=== PATIENT | male | born 1940 | race Two or more races ===

== ENCOUNTER 2017-09-10 14:50 | Inpatient (IN) | payer BC, MEDICARE ==
[2017-09-10] VITALS (16 sets, daily range): BP systolic 161–225; BP diastolic 65–120
[~2017-09-10] VITALS: Ht 175.3 cm; Wt 91.6 kg
[2017-09-10] MEDS ORDERED: DOXAZOSIN MESYLA4 MG ORAL (15:06)
[2017-09-10] MEDS ORDERED: ASPIR 8181 MG ORAL (15:06)
[2017-09-10] MEDS ORDERED: VITAMIN D400 INTLU ORAL (15:06)
[2017-09-10] MEDS ORDERED: ALLOPURINOL100 M1 ORAL (15:06)
[2017-09-10] MEDS ORDERED: HYDRALAZINE HC100 MG ORAL (15:06)
[2017-09-10] MEDS ORDERED: POTASSIUM CHLO20 ME2 ORAL (15:06)
[2017-09-10] MEDS ORDERED: CALCITRIOL0.25 MCG PO (15:06)
[2017-09-10] MEDS ORDERED: METOPROLOL TART50 M1 ORAL (15:21)
[2017-09-10] MEDS ORDERED: GLIPIZIDE5 MG ORAL (15:21)
[2017-09-10] MEDS ORDERED: FUROSEMIDE40 MG ORAL (15:21)
[2017-09-10] MEDS ORDERED: LORazepam 1mg tab ORAL ONE (15:30)
[2017-09-10] MEDS ORDERED: Acetaminophen 500mg (ES) tab ORAL ONE (15:30)
--- NOTE | 2017-09-10 15:39 | Emergency Room Report ---
History of Present Illness General Chief Complaint: Hypertension Source: Patient Present Illness HPI 71 sexual male with history of hypertension and gout, and reported noncompliance of his home antihypertensive regimen, sent in by Dr. Roy for admission for control of his blood pressure, his pressures are 220s over 110 's, and his only complaint is a mild frontal headache. He denies numbness, tingling, weakness, vision complaints, chest pain, syncope, any other problems at all. He reports he does not take his medications regularly and he generally doesn't like the way they make him feel and that is the reason for his noncompliance. Allergies: Coded Allergies: No Known Allergies (Verified Allergy, Mild, 08/30/06) Patient History Past Medical History: see triage record Reviewed Nursing Documentation: PMH: Agreed; PSxH: Agreed Nursing Documentation-PMH Past Medical History: No History, Except For Hx Hypertension: Yes Review of Systems All Other Systems: negative except mentioned in HPI Physical Exam Vital Signs Date Time Temp Pulse Resp B/P (MAP) Pulse Ox O2 Delivery O2 Flow Rate FiO2 09/10/17 15:01 98.2 69 18 243/120 96 Room Air 98.2 Sp02 EP Interpretation: reviewed, normal General Appearance: normal inspection, no apparent distress, alert, non-toxic Head: normocephalic Eyes: bilateral eye normal inspection, bilateral eye PERRL, bilateral eye EOMI ENT: normal ENT inspection, hearing grossly normal, normal pharynx, no angioedema, normal voice, moist mucus membranes Neck: normal inspection, full range of motion, supple, supple/symm/no masses Respiratory: chest non-tender, lungs clear, normal breath sounds, chest symmetrical, palpation of chest normal Cardiovascular #1: normal peripheral pulses, regular rate, rhythm, no gallop, no JVD, no murmur, no rub, edema - 2+ B/L LE pitting edema to level of knees Cardiovascular #2: 2+ radial (R), 2+ radial (L) Gastrointestinal: normal inspection, non tender, soft, no mass, no guarding, no rebound Rectal: deferred Genitourinary: normal inspection, no CVA tenderness Musculoskeletal: back normal, gait/station normal, normal range of motion, non- tender, no calf tenderness, Gypsy's Sign negative Neurologic: normal inspection, alert, responsive, hoop coiler III-XII nml as tested, motor strength/tone normal, sensory intact, cerebellar normal, speech normal Psychiatric: normal inspection, judgement/insight normal, memory normal, mood/ affect normal Skin: normal color, no rash, warm/dry, normal turgor Lymphatic: no adenopathy Medical Decision Making ER Course Patient given 1 mg Ativan, Tylenol, and 1 dose of his home hydralazine and metoprolol doses. He has long-standing poorly controlled hypertension, I do not wish to rapidly lower his blood pressure. I do believe this is a good start to gradual reduction in his pressures, and I do not think he needs any further workup other than basic labs, chest x-ray, he only has a low-grade headache, I do not suspect any intracranial catastrophe such as bleeds or large strokes that require neuroimaging at this time. Diagnosis hypertensive crisis. EKG Diagnostic Results EKG Time: 15:25 EP Interpretation: LVH criteria, TWI's diffusely, no ST elevations Rate: normal Rhythm: NSR ST Segments: no acute changes ASA given to the pt in ED: Yes Rhythm Strip Diag. Results Rhythm Strip Time: 15:38 EP Interpretation: yes Rate: 69 Rhythm: NSR, no PVC's, no ectopy Chest X-Ray Diagnostic Results Chest X-Ray Diagnostic Results : Chest X-Ray Ordered: Yes # of Views/Limited/Complete: 1 View Indication: Other - htn EP Interpretation: Yes Interpretation: no consolidation, no effusion, no pneumothorax, other - cardiomegaly Impression: No acute disease Electronically Signed by: Roberto Govea MD Last Vital Signs Date Time Temp Pulse Resp B/P (MAP) Pulse Ox O2 Delivery O2 Flow Rate FiO2 09/10/17 15:27 98.2 09/10/17 15:01 69 18 243/120 96 Room Air Disposition: ADMITTED INPATIENT Admit Decision Time: 15:39 Condition: Stable Signed Out To: Dr. Srivastava sent for direct admission but patient came through the ER. ROBERTO GOVEA M.D Sep 10, 2017 15:39
[2017-09-10] MEDS ORDERED: HydrALAZINE 50mg tab ORAL ONE (15:45)
[2017-09-10] MEDS ORDERED: Metoprolol Tartrate 50mg tab ORAL ONE (15:45)
[2017-09-10 16:03] LABS: BASOPHILS % (AUTO) 1.8 % (0.0-2.0); EOSINOPHILS % (AUTO) 5.4 % (0.0-3.0); HEMOGLOBIN 11.9 G/DL (14.2-18.0); MEAN CORPUSCULAR VOLUME 88 FL (80-99); NEUTROPHILS % (AUTO) 60.8 % (45.0-75.0); PLATELET COUNT 262 K/UL (150-450); RED BLOOD COUNT 4.22 M/UL (4.70-6.10); RED CELL DISTRIBUTION WIDTH 11.8 % (11.6-14.8); WHITE BLOOD COUNT 7.1 K/UL (4.8-10.8)
[2017-09-10 16:16] LABS: ANION GAP 10 mmol/L (5-15); BLOOD UREA NITROGEN 41 mg/dL (7-18); CALCIUM 9.7 MG/DL (8.5-10.1); CARBON DIOXIDE 28 MMOL/L (21-32); CHLORIDE 105 MMOL/L (98-107); CREATININE 5.2 MG/DL (0.55-1.30); POTASSIUM 3.4 MMOL/L (3.5-5.1); SODIUM 143 MMOL/L (136-145)
[2017-09-10 16:21] LABS: ALANINE AMINOTRANSFERASE 19 U/L (12-78); ALBUMIN 3.1 G/DL (3.4-5.0); ALBUMIN/GLOBULIN RATIO 0.7 (1.0-2.7); ALKALINE PHOSPHATASE 96 U/L (46-116); ASPARTATE AMINO TRANSFERASE 21 U/L (15-37); BILIRUBIN,TOTAL 0.4 MG/DL (0.2-1.0)
--- NOTE | 2017-09-10 16:26 | Diagnostic Imaging Report ---
Indication: Dyspnea Comparison: 08/30/2006 A single view chest radiograph was obtained. Findings: Cardiomediastinal appearance is within normal limits for age. Pulmonary vascularity is appropriate. The diaphragmatic contour is smooth and costophrenic angles are sharp. No pleural effusions are identified. The bones are unremarkable. Impression: No acute findings
[2017-09-10] MEDS ORDERED: niCARdipine HCl 200 ML IV SCH (16:45)
[2017-09-10] MEDS: 1/2NS w/KCl 20mEq 1000ml 1,000 ML IV SCH (21:15)
[2017-09-10] MEDS: Metoprolol Tartrate 50mg tab ORAL SCH (21:18)
[2017-09-11] VITALS (37 sets, daily range): BP systolic 128–197; BP diastolic 59–94
[2017-09-11] MEDS: HydrALAZINE 50mg tab ORAL SCH ×4 (00:28→17:32)
[2017-09-11] MEDS: niCARdipine HCl 200 ML IV SCH ×2 (00:29→06:06)
--- NOTE | 2017-09-11 00:45 | Consultation ---
DATE OF CONSULTATION: 09/10/2017 CARDIOLOGY CONSULTATION CONSULTING PHYSICIAN: Wilman Srivastava M.D. REQUESTING PHYSICIAN: Trung Rm M.D. REASON FOR CONSULT: Hypertensive emergency. HISTORY OF PRESENT ILLNESS: This 77-year-old male has a longstanding history of hypertensive heart disease and hypertensive nephrosclerosis in addition to being a non-insulin requiring diabetic. The patient has been stable for many years, although over the past year his renal function has worsened. Of concern was an elevated blood pressure reading noted about a week ago and repeat evaluation in my office revealed persistent elevated blood pressure over 200 systolic. The patient had all his medications in hand, but what was concerning was some confusion on his part and difficulty confirming whether he took his medications are not. This was quite an unusual state for this particular patient. The patient himself was concerned about his condition and could not explain why he was not functioning like usual, as such hospitalization was initiated. PAST MEDICAL HISTORY: Hypertensive heart disease, hypertensive nephrosclerosis, [id number] diabetes mellitus, diabetic nephropathy, chronic kidney disease stage 4, hyperuricemia, history of colon cancer status post hemicolectomy, vitamin D deficiency, and hyperlipidemia. MEDICATIONS: Prescribed medications prior to admission are reviewed and reconciled. ALLERGIES: None. FAMILY HISTORY: Notable for diabetes and hypertension in his mother. SOCIAL HISTORY: Negative for smoking, alcohol, or substance abuse. REVIEW OF SYSTEMS: Outpatient echocardiogram has revealed normal ejection fraction, concentric hypertrophy, and a diastolic relaxation abnormality with no history of flow-limiting coronary artery disease. He is up-to-date with his colonoscopy evaluations. His diabetes has been managed with oral therapy. As noted, his renal function has deteriorated of late and he has been followed as an outpatient by Dr. Burch. His creatinine has advanced to the range of 2.5. There is no history of asthma or blood clots in the legs. PHYSICAL EXAMINATION: GENERAL: Awake, alert in no distress. VITAL SIGNS: Blood pressure 243/120, heart rate 79, respiratory rate 18, and afebrile. HEENT: Normocephalic and atraumatic. Conjunctivae pink. Fundi benign. Oropharynx clear. NECK: Supple. Jugular venous pressure normal. Carotid upstrokes without delay. LUNGS: Clear. CARDIAC: Regular rhythm and rate. Normal S1 and S2 with a fourth heart sound. ABDOMEN: Soft and nontender with no bruits. EXTREMITIES: Good pulses. Trace dependent edema. NEUROLOGIC: Reveals some slow response time, but sensorium generally clear and motor exam unremarkable. LABORATORY AND DIAGNOSTIC DATA: EKG with sinus rhythm. No acute abnormalities. Chest x-ray no acute process. By report a CAT scan of the brain had no acute process noted either. IMPRESSION: 1. Hypertensive emergency. 2. Hypertensive heart disease. 3. Chronic kidney disease. 4. Type 2 diabetes mellitus. 5. History of colon cancer, in remission. PLAN: 1. ICU unit care. 2. IV medications with slow titration of blood pressure. 3. Resume baseline cardiovascular regimen and titrate cautiously. 4. Renal consultation is pending per Dr. Rm. 5. Further recommendations will follow. 6. We will avoid precipitous drop in blood pressure parameters in this setting. Wilman Srivastava M.D. DR: DELON JOB#: [id number] CC:
[2017-09-11 06:01] LABS: EOSINOPHILS % (AUTO) 5.7 % (0.0-3.0); HEMATOCRIT 31.1 % (42.0-52.0); HEMOGLOBIN 10.4 G/DL (14.2-18.0); LYMPHOCYTES % (AUTO) 17.4 % (20.0-45.0); MEAN CORPUSCULAR VOLUME 88 FL (80-99); MONOCYTES % (AUTO) 7.8 % (1.0-10.0); NEUTROPHILS % (AUTO) 68.1 % (45.0-75.0); PLATELET COUNT 223 K/UL (150-450); RED BLOOD COUNT 3.55 M/UL (4.70-6.10); RED CELL DISTRIBUTION WIDTH 11.6 % (11.6-14.8); WHITE BLOOD COUNT 6.9 K/UL (4.8-10.8)
[2017-09-11] MEDS: GlipiZIDE 5mg tab ORAL SCH ×2 (06:06→17:32)
[2017-09-11 06:28] LABS: ALANINE AMINOTRANSFERASE 17 U/L (12-78); ALBUMIN 2.3 G/DL (3.4-5.0); ALBUMIN/GLOBULIN RATIO 0.6 (1.0-2.7); ALKALINE PHOSPHATASE 80 U/L (46-116); ANION GAP 9 mmol/L (5-15); ASPARTATE AMINO TRANSFERASE 16 U/L (15-37); BILIRUBIN,TOTAL 0.2 MG/DL (0.2-1.0); BLOOD UREA NITROGEN 39 mg/dL (7-18); CALCIUM 8.8 MG/DL (8.5-10.1); CARBON DIOXIDE 27 MMOL/L (21-32); CHLORIDE 106 MMOL/L (98-107); CREATININE 4.8 MG/DL (0.55-1.30); POTASSIUM 3.2 MMOL/L (3.5-5.1); SODIUM 142 MMOL/L (136-145)
[2017-09-11 07:16] LABS: APPEARANCE,URINE CLEAR; BILIRUBIN, URINE NEGATIVE (NEGATIVE); COLOR,URINE PALE YELLOW; GLUCOSE, URINE (UA) 2+ (NEGATIVE); KETONES,URINE NEGATIVE (NEGATIVE); LEUKOCYTE ESTERASE ,URINE NEGATIVE (NEGATIVE); NITRITE,URINE NEGATIVE (NEGATIVE); PH,URINE 6.5 (4.5-8.0); PROTEIN,URINE 4+ (NEGATIVE); UROBILINOGEN,URINE NORMAL MG/DL (0.0-1.0)
[2017-09-11] MEDS: Aspirin EC 81mg tab ORAL SCH (08:30)
[2017-09-11] MEDS: Calcitriol 0.25mcg Cap ORAL SCH (08:30)
[2017-09-11] MEDS: Metoprolol Tartrate 50mg tab ORAL SCH ×2 (08:30→21:18)
[2017-09-11] MEDS: Allopurinol 100mg Tab ORAL SCH (08:31)
[2017-09-11] MEDS: 1/2NS w/KCl 20mEq 1000ml 1,000 ML IV SCH ×2 (08:33→17:33)
[2017-09-11] MEDS: Heparin 5000 units/ml inj SUBQ SCH ×2 (08:54→21:20)
[2017-09-11] MEDS ORDERED: Doxazosin 4mg tab ORAL SCH (09:00)
[2017-09-11] MEDS ORDERED: Aspirin EC 81mg tab ORAL SCH (09:00)
--- NOTE | 2017-09-11 10:17 | Diagnostic Imaging Report ---
Indication: Headache Technique: Contiguous 5 mm thick transaxial imaging of the head obtained in a Siemens Sensation [address] scanner. Soft tissue and bone windows generated. Automatic Exposure Control was utilized. Total Dose length Product (DLP): 1393.[address] Dose Index Volume (CTDIvol): 70.38 mGy Comparison: none Findings: There is mild prominence of the ventricles, basal cisterns, and cerebral sulci consistent with atrophy. Moderate, patchy, nonspecific, white matter hypoattenuation is noted throughout the brain consistent with chronic small vessel disease. There is no midline shift, edema, acute hemorrhage, mass effect, or abnormal extra-axial fluid collections. Bones and extra osseous soft tissues are unremarkable. Impression: No acute intracranial bleed, mass effect or edema. Moderate atrophy of the brain. Evidence of chronic small vessel disease involving white matter tracts. The CT scanner at [facility] is accredited by the [employer] and the scans are performed using dose optimization techniques as appropriate to a performed exam including Automatic Exposure control.
--- NOTE | 2017-09-11 10:44 | History and Physical Report ---
DATE OF ADMISSION: 09/10/2017 CHIEF COMPLAINT: Hypertensive emergency. HISTORY OF PRESENT ILLNESS: The patient is a pleasant 77-year-old male. 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 He had systolics in the 190s to 200 range. He seems more confused, confusion, and markedly elevated blood pressure. He is now admitted for further evaluation and care. Currently, he is on a nicardipine drip. Blood pressure is down in the 160 range. He denies any headaches. No fevers. No chills. PAST MEDICAL HISTORY: As above. He has history of hyperuricemia, history of colon cancer, status post hemicolectomy, vitamin D deficiency, and hyperlipidemia. CURRENT MEDICATIONS: Reconciled and reviewed. ALLERGIES: None. FAMILY HISTORY: Significant for diabetes and hypertension. SOCIAL HISTORY: Negative for tobacco, ethanol, or drugs. REVIEW OF SYSTEMS: GENERAL: No fevers or chills. HEENT: No headaches or visual changes. CARDIOPULMONARY: No chest pain or shortness of breath. GASTROINTESTINAL: No nausea or vomiting. GENITOURINARY: No urgency or frequency. MUSCULOSKELETAL: No joint pain or swelling. NEUROLOGIC: No evidence of seizures. PHYSICAL EXAMINATION: VITAL SIGNS: Current temperature is 98.3, pulse 57, respirations 16, and blood pressure 140/61. GENERAL: The patient is well developed, no apparent distress. HEART: Regular rate and rhythm. LUNGS: Clear. ABDOMEN: Soft, nontender, and nondistended. EXTREMITIES: Without clubbing, cyanosis, or edema. LABORATORY DATA: White count was 7, hemoglobin 11, hematocrit 37, and platelets of 262. Sodium 143, potassium 3.4, chloride 105, bicarb 28, BUN 41, creatinine 5.2. Urine was clear. ASSESSMENT: This is a pleasant male with history of hypertension, chronic kidney disease, diabetes, admitted with hypertensive emergency. 1. Hypertensive emergency. 2. History of chronic kidney disease. 3. Acute on chronic renal failure. 4. Diabetes. 5. Prior history of colon cancer. PLAN: Admit to ICU. Renal and Cardiology consultations. Continue nicardipine drip and titrate as needed. Consider gentle hydration. Check renal ultrasound if renal function does not improve. Continue outpatient diabetic regimen. Monitor blood sugars. Replace electrolytes as needed. Trung Rm M.D. DR: TIFFANY JOB#: [id number] CC:
--- NOTE | 2017-09-11 17:15 | Consultation ---
DATE OF CONSULTATION: 09/11/2017 NEPHROLOGY CONSULTATION CONSULTING PHYSICIAN: Dave Burch M.D. REFERRING PHYSICIAN: Trung mR M.D. REASON FOR CONSULTATION: Elevated BUN and creatinine. Change in status. HISTORY OF PRESENT ILLNESS: The patient is well known to me. He is a 77-year-old male with, hypertension, diabetes, and chronic kidney disease with a baseline creatinine about 2.5. He presents now with rising BUN and creatinine, weakness, and apparently some confusion on arrival. SURGERIES: Colon resection for colon cancer many years ago. MEDICATIONS: Vitamin D3 5000 units daily, amlodipine 10 mg daily, benazepril 40 mg daily, Lasix 40 Sunday, Sunday, and Sunday, doxazosin 8 mg b.i.d., glipizide 5 mg b.i.d., metoprolol 50 mg b.i.d., calcitriol 0.5 mcg daily, allopurinol 150 mg daily, aspirin 81 mg daily, hydralazine 100 mg b.i.d., and potassium 20 mEq Sunday, Sunday, and Sunday. ALLERGIES: None known. HABITS: He is a nondrinker and nonsmoker. No use of illicit drugs. SYSTEM REVIEW: HEENT: Vision and hearing is good. ENDOCRINE: History of diabetes controlled on oral agents and likely diabetic nephropathy. No known thyroid disease. PULMONARY: No asthma, TB, or chronic cough. CARDIAC: No definite angina or chest pain. GASTROINTESTINAL: He said he has had nausea and vomiting, unable to hold down food lately. GENITOURINARY: No dysuria, hematuria, or kidney stones. PHYSICAL EXAMINATION: GENERAL: The patient is alert man, seen in the intensive care unit. VITAL SIGNS: Temperature 98.1, pulse 75, respirations 18, and blood pressure 155/78. HEENT: Sclerae are nonicteric. Ocular motions intact in all directions. Oral mucosa slightly dry. NECK: No adenopathy. LUNGS: Clear. HEART: Regular rhythm. No murmur. ABDOMEN: Soft without organomegaly or masses. EXTREMITIES: No edema, cyanosis or clubbing. NEUROLOGIC: He is alert and oriented. Cranial nerves are intact. PERTINENT LABORATORY AND DIAGNOSTIC DATA: On admission, BUN 41 and creatinine 5.2 and repeat 39 and 4.8. Sodium 142, potassium 3.2, chloride 106, and CO2 27. Chest x-ray shows no active disease. Troponin 0.031. Albumin 2.3. The urinalysis shows 0 red cells, 0 to 2 white cells, 4+ proteinuria, and 2+ glucose. IMPRESSION: 1. Diabetic nephropathy. 2. Dehydration. 3. Nausea and vomiting, etiology unclear, possibly from uremia. 4. Hypertensive heart disease and kidney disease. 5. Adult onset diabetes. PLAN: We will continue the patient with hydration and monitor his renal function. Hopefully, he will come back to baseline. The glucose will be monitored as well as his cardiovascular and neurologic status. Dave Burch M.D. DR: DARCY JOB#: [id number] CC:
[2017-09-11] MEDS: Doxazosin 4mg tab ORAL SCH (17:32)
[2017-09-12] VITALS (24 sets, daily range): BP systolic 133–190; BP diastolic 59–90
--- NOTE | 2017-09-12 00:36 | Cardiology Report ---
APPROVED REPORT EKG Measurement Heart [id number] VT [id number] Normal sinus rhythm Voltage criteria for left ventricular hypertrophy Abnormal ECG
[2017-09-12] MEDS: cloNIDine 0.2mg Tab ORAL PRN ×2 (00:46→21:52)
--- NOTE | 2017-09-12 05:00 | Progress Note ---
DATE: 09/11/2017 CARDIOLOGY PROGRESS NOTE SUBJECTIVE: Condition remains critical. Prognosis guarded. The patient remains in the intensive care unit. Blood pressure parameters are significantly elevated. He is on IV and oral antihypertensives transitioning from former to latter. The patient is more clear today. He has no shortness of breath or chest pain. OBJECTIVE: VITAL SIGNS: Blood pressure up to 180 systolic, heart rate in the 80s, respiratory rate 20, he is afebrile. HEENT: Conjunctivae pink. Sclerae are anicteric. Oropharynx clear. Mucous membranes moist. NECK: Supple. No jugular venous distention. LUNGS: With few rales. CARDIAC: Regular rhythm and rate. Normal S1, S2 with a fourth heart sound. ABDOMEN: Soft, nontender. No bruits. EXTREMITIES: Without edema. NEUROLOGIC: Nonfocal. Sensorium is clear. LABORATORY DATA: White count 6.9, hemoglobin 10.4. Potassium 3.2, BUN 39, and creatinine 4.8. Pro-natriuretic peptide 3100. Albumin 2.3. IMPRESSION: 1. Hypertensive emergency, improving. 2. Acute on chronic diastolic congestive heart failure. 3. Severe protein-calorie malnutrition. 4. Acute on chronic renal failure. 5. Type 2 diabetes mellitus with hyperglycemia. 6. Hypokalemia. PLAN: 1. Continue titration of antihypertensives as described above. 2. Check magnesium. 3. Replace potassium. 4. Protein supplement. 5. Dlhgvy-avbk-kxoo urine collection. 6. Anti-platelet and anti-lipid therapy. 7. Continue ICU monitoring. Wilman Srivastava M.D. DR: Brandy JOB#: [id number] CC:
[2017-09-12] MEDS: 1/2NS w/KCl 20mEq 1000ml 1,000 ML IV SCH ×2 (06:21→18:30)
[2017-09-12] MEDS: GlipiZIDE 5mg tab ORAL SCH ×3 (06:21→16:30)
[2017-09-12] MEDS ORDERED: Haloperidol 5mg/ml Inj IM PRN (08:30)
--- NOTE | 2017-09-12 08:32 | General Progress Note ---
Assessment/Plan Problem List: (1) Toxic metabolic encephalopathy ICD Codes: G92 - Toxic encephalopathy SNOMED: 605586592 (2) Hypertensive urgency ICD Codes: I16.0 - Hypertensive urgency SNOMED: 440665601 Status: stable, not improved Assessment/Plan topical and iv bp rx anxiolytics follow up labs dvt/stress ulcer prophylaxis restraints for safety Subjective ROS Limited/Unobtainable: Yes Constitutional: Reports: malaise, weakness HEENT: Reports: no symptoms Cardiovascular: Reports: no symptoms Respiratory: Reports: no symptoms Gastrointestinal/Abdominal: Reports: no symptoms Genitourinary: Reports: no symptoms Neurologic/Psychiatric: Reports: anxiety, emotional problems Endocrine: Reports: no symptoms Hematologic/Lymphatic: Reports: no symptoms Allergies: Coded Allergies: No Known Allergies (Verified Allergy, Mild, 08/30/06) All Systems: reviewed and negative except above Subjective very agitated and confused this am. trying to get out of bed. refusing meds. moves all 4 ext. thinks he's at home. Objective Last 24 Hour Vital Signs Date Time Temp Pulse Resp B/P (MAP) Pulse Ox O2 Delivery O2 Flow Rate FiO2 09/12/17 07:00 58 14 159/71 99 Room Air 09/12/17 06:00 56 14 143/62 99 Room Air 09/12/17 05:00 59 13 149/67 99 Room Air 09/12/17 04:00 57 09/12/17 04:00 98.6 57 14 138/65 98 Room Air 98.6 09/12/17 03:00 58 14 133/59 98 Room Air 09/12/17 02:00 60 14 148/62 98 Room Air 09/12/17 01:00 68 14 156/68 98 Room Air 09/12/17 00:46 166/70 09/12/17 00:00 79 09/12/17 00:00 98.2 79 17 190/78 99 Room Air 98.2 09/11/17 23:00 82 16 171/72 100 Room Air 09/11/17 22:00 76 16 178/94 98 Room Air 09/11/17 21:18 76 165/74 09/11/17 21:00 76 16 171/85 98 Room Air 09/11/17 20:00 75 09/11/17 20:00 98.0 75 16 178/76 98 Room Air 98.0 09/11/17 19:00 72 18 156/76 98 Room Air 09/11/17 18:00 69 18 174/83 98 Room Air 09/11/17 17:32 177/93 09/11/17 17:00 75 18 167/93 98 Room Air 09/11/17 16:00 97.8 73 16 179/84 93 Room Air 97.8 09/11/17 16:00 65 09/11/17 15:00 68 18 165/75 98 Room Air 09/11/17 14:01 71 148/85 09/11/17 14:00 74 18 158/74 98 Room Air 09/11/17 13:00 71 18 148/85 95 Room Air 09/11/17 12:30 75 18 155/78 95 Room Air 09/11/17 12:30 78 18 155/78 95 Room Air 09/11/17 12:00 78 09/11/17 12:00 98.1 78 16 152/82 93 Room Air 98.1 09/11/17 11:33 128/83 09/11/17 11:30 76 16 128/83 95 Room Air 09/11/17 11:00 76 16 143/63 98 Room Air 09/11/17 10:30 72 16 150/70 98 Room Air 09/11/17 10:00 73 16 157/69 98 Room Air 09/11/17 09:30 67 16 149/70 98 Room Air 09/11/17 09:00 73 16 146/71 96 Room Air 09/11/17 08:30 76 151/68 09/11/17 08:30 78 16 151/62 98 Room Air Intake and Output 09/11/17 09/12/17 19:00 07:00 Intake Total 1910 ml 1045 ml Output Total 1120 ml 900 ml Balance 790 ml 145 ml Intake Oral 750 ml 220 ml IV Total 1160 ml 825 ml Output Urine Total 1120 ml 900 ml Height (Feet): 5 Height (Inches): 9.00 Weight (Pounds): 155 General Appearance: WD/WN, alert Neck: supple Cardiovascular: regular rhythm Respiratory/Chest: chest wall non-tender, lungs clear, normal breath sounds Abdomen: normal bowel sounds, non tender, soft, no organomegaly Edema: no edema noted Arm (L), no edema noted Arm (R), no edema noted Leg (L), no edema noted Leg (R), no edema noted Pedal (L), no edema noted Pedal (R), no edema noted Generalized Trung Rm MD Sep 12, 2017 08:32
[2017-09-12] MEDS: Allopurinol 100mg Tab ORAL SCH (09:00)
[2017-09-12] MEDS: Doxazosin 4mg tab ORAL SCH ×2 (09:00→17:26)
[2017-09-12] MEDS: Heparin 5000 units/ml inj SUBQ SCH ×2 (09:00→20:57)
[2017-09-12] MEDS: Aspirin EC 81mg tab ORAL SCH (09:00)
[2017-09-12] MEDS: Metoprolol Tartrate 50mg tab ORAL SCH ×2 (09:00→20:55)
[2017-09-12] MEDS: HydrALAZINE 50mg tab ORAL SCH ×3 (09:00→17:26)
[2017-09-12] MEDS: Calcitriol 0.25mcg Cap ORAL SCH (09:00)
[2017-09-12 09:05] LABS: BASOPHILS % (AUTO) 1.1 % (0.0-2.0); EOSINOPHILS % (AUTO) 4.1 % (0.0-3.0); HEMATOCRIT 34.9 % (42.0-52.0); HEMOGLOBIN 11.3 G/DL (14.2-18.0); LYMPHOCYTES % (AUTO) 37.7 % (20.0-45.0); MEAN CORPUSCULAR VOLUME 88 FL (80-99); MONOCYTES % (AUTO) 6.5 % (1.0-10.0); NEUTROPHILS % (AUTO) 50.7 % (45.0-75.0); PLATELET COUNT 240 K/UL (150-450); RED BLOOD COUNT 3.95 M/UL (4.70-6.10); RED CELL DISTRIBUTION WIDTH 11.7 % (11.6-14.8); WHITE BLOOD COUNT 8.2 K/UL (4.8-10.8)
[2017-09-12 09:33] LABS: ALANINE AMINOTRANSFERASE 19 U/L (12-78); ALBUMIN 2.6 G/DL (3.4-5.0); ALBUMIN/GLOBULIN RATIO 0.6 (1.0-2.7); ALKALINE PHOSPHATASE 85 U/L (46-116); ANION GAP 10 mmol/L (5-15); ASPARTATE AMINO TRANSFERASE 18 U/L (15-37); BILIRUBIN,TOTAL 0.3 MG/DL (0.2-1.0); BLOOD UREA NITROGEN 37 mg/dL (7-18); CALCIUM 8.8 MG/DL (8.5-10.1); CARBON DIOXIDE 25 MMOL/L (21-32); CHLORIDE 106 MMOL/L (98-107); CREATININE 4.6 MG/DL (0.55-1.30); POTASSIUM 4.1 MMOL/L (3.5-5.1); SODIUM 141 MMOL/L (136-145)
--- NOTE | 2017-09-12 11:05 | Nephrology Progress Note ---
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 (4) CKD (chronic kidney disease) stage 4, GFR 15-29 ml/min (5) Hypertensive urgency (6) Toxic metabolic encephalopathy Plan continue iv fluids, titrate bp meds Subjective Constitutional: Reports: weakness HEENT: Reports: no symptoms Genitourinary: Reports: no symptoms Objective Objective Last 24 Hour Vital Signs Date Time Temp Pulse Resp B/P (MAP) Pulse Ox O2 Delivery O2 Flow Rate FiO2 09/12/17 10:00 98.4 63 22 154/72 99 Room Air 98.4 09/12/17 09:35 162/70 09/12/17 09:00 162/70 09/12/17 09:00 77 24 162/70 98 Room Air 09/12/17 08:00 80 09/12/17 08:00 59 20 169/69 98 Room Air 09/12/17 07:00 58 14 159/71 99 Room Air 09/12/17 06:00 56 14 143/62 99 Room Air 09/12/17 05:00 59 13 149/67 99 Room Air 09/12/17 04:00 57 09/12/17 04:00 98.6 57 14 138/65 98 Room Air 98.6 09/12/17 03:00 58 14 133/59 98 Room Air 09/12/17 02:00 60 14 148/62 98 Room Air 09/12/17 01:00 68 14 156/68 98 Room Air 09/12/17 00:46 166/70 09/12/17 00:00 79 09/12/17 00:00 98.2 79 17 190/78 99 Room Air 98.2 09/11/17 23:00 82 16 171/72 100 Room Air 09/11/17 22:00 76 16 178/94 98 Room Air 09/11/17 21:18 76 165/74 09/11/17 21:00 76 16 171/85 98 Room Air 09/11/17 20:00 75 09/11/17 20:00 98.0 75 16 178/76 98 Room Air 98.0 09/11/17 19:00 72 18 156/76 98 Room Air 09/11/17 18:00 69 18 174/83 98 Room Air 09/11/17 17:32 177/93 09/11/17 17:00 75 18 167/93 98 Room Air 09/11/17 16:00 97.8 73 16 179/84 93 Room Air 97.8 09/11/17 16:00 65 09/11/17 15:00 68 18 165/75 98 Room Air 09/11/17 14:01 71 148/85 09/11/17 14:00 74 18 158/74 98 Room Air 09/11/17 13:00 71 18 148/85 95 Room Air 09/11/17 12:30 75 18 155/78 95 Room Air 09/11/17 12:30 78 18 155/78 95 Room Air 09/11/17 12:00 78 09/11/17 12:00 98.1 78 16 152/82 93 Room Air 98.1 09/11/17 11:33 128/83 09/11/17 11:30 76 16 128/83 95 Room Air Intake and Output 09/11/17 09/12/17 19:00 07:00 Intake Total 1910 ml 1120 ml Output Total 1120 ml 900 ml Balance 790 ml 220 ml Intake Oral 750 ml 220 ml IV Total 1160 ml 900 ml Output Urine Total 1120 ml 900 ml Laboratory Tests 09/12/17 08:18: White Blood Count 8.2, Red Blood Count 3.95L, Hemoglobin 11.3L, Hematocrit 34.9L , Mean Corpuscular Volume 88, Mean Corpuscular Hemoglobin 28.6, Mean Corpuscular Hemoglobin Concent 32.5, Red Cell Distribution Width 11.7, Platelet Count 240, Mean Platelet Volume 8.2, Neutrophils (%) (Auto) 50.7, Lymphocytes (% ) (Auto) 37.7, Monocytes (%) (Auto) 6.5, Eosinophils (%) (Auto) 4.1H, Basophils (%) (Auto) 1.1, Sodium Level 141, Potassium Level 4.1, Chloride Level 106, Carbon Dioxide Level 25, Anion Gap 10, Blood Urea Nitrogen 37H, Creatinine 4.6H , Estimat Glomerular Filtration Rate , Glucose Level 133H, Calcium Level 8.8, Magnesium Level 2.1, Total Bilirubin 0.3, Aspartate Amino Transf (AST/SGOT) 18, Alanine Aminotransferase (ALT/SGPT) 19, Alkaline Phosphatase 85, Ammonia 33H, Total Protein 6.8, Albumin 2.6L, Globulin 4.2, Albumin/Globulin Ratio 0.6L Height (Feet): 5 Height (Inches): 9.00 Weight (Pounds): 155 General Appearance: no apparent distress, alert EENT: normal ENT inspection Neck: normal alignment Cardiovascular: regular rhythm Respiratory/Chest: lungs clear Abdomen: non tender, soft Extremities: non-tender 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
[2017-09-12] MEDS ORDERED: Tubing IV Secondary IV ONE (16:39)
[2017-09-12] MEDS ORDERED: D5NS 1000ml IV ONE (16:39)
[2017-09-13] VITALS (24 sets, daily range): BP systolic 133–176; BP diastolic 46–87
--- NOTE | 2017-09-13 05:15 | Progress Note ---
DATE: 09/12/2017 CARDIOLOGY PROGRESS NOTE SUBJECTIVE: The patient remains in the intensive care unit. His blood pressure parameters have improved. He is off IV drip. He has not had any chest pain or shortness of breath. OBJECTIVE: GENERAL: Earlier, the patient was confused, combative, and refusing medications. VITAL SIGNS: Blood pressure 143/62, pulse 56, respiratory rate 14. NECK: Supple. Jugular venous pressure is slightly elevated. LUNGS: With few rales. CARDIAC: Regular rhythm and rate. Normal S1, S2 with a fourth heart sound. ABDOMEN: Soft, nontender. No bruits. EXTREMITIES: With 1+ dependent edema. IMPRESSION: 1. Hypertensive emergency. 2. Hypertensive encephalopathy. 3. Acute and chronic diastolic congestive heart failure. 4. Acute on chronic renal failure. 5. Type 2 diabetes mellitus. 6. History of colon cancer, in remission. PLAN: 1. Review laboratory studies. 2. Replace electrolytes as needed. 3. Titrate antihypertensives. 4. No resumption of IV drip. 5. Monitor cardiorenal parameters. 6. Sitter at bedside when transferred out of ICU if he continues to have current type of behavioral issues due to encephalopathy. Wilman Srivastava M.D. DR: Brandy JOB#: [id number] CC:
[2017-09-13 06:21] LABS: AMMONIA 18 umol/L (11-32)
[2017-09-13] MEDS: GlipiZIDE 5mg tab ORAL SCH ×2 (06:31→17:01)
[2017-09-13 06:55] LABS: ALANINE AMINOTRANSFERASE 15 U/L (12-78); ALBUMIN 2.1 G/DL (3.4-5.0); ALBUMIN/GLOBULIN RATIO 0.6 (1.0-2.7); ALKALINE PHOSPHATASE 65 U/L (46-116); ANION GAP 9 mmol/L (5-15); ASPARTATE AMINO TRANSFERASE 14 U/L (15-37); BILIRUBIN,TOTAL 0.2 MG/DL (0.2-1.0); BLOOD UREA NITROGEN 40 mg/dL (7-18); CALCIUM 8.6 MG/DL (8.5-10.1); CARBON DIOXIDE 24 MMOL/L (21-32); CHLORIDE 107 MMOL/L (98-107); CREATININE 4.4 MG/DL (0.55-1.30); POTASSIUM 4.1 MMOL/L (3.5-5.1); SODIUM 140 MMOL/L (136-145)
[2017-09-13] MEDS: 1/2NS w/KCl 20mEq 1000ml 1,000 ML IV SCH ×2 (08:30→21:01)
[2017-09-13] MEDS: Heparin 5000 units/ml inj SUBQ SCH ×2 (10:00→21:41)
[2017-09-13] MEDS: Calcitriol 0.25mcg Cap ORAL SCH (10:05)
[2017-09-13] MEDS: Aspirin EC 81mg tab ORAL SCH (10:06)
[2017-09-13] MEDS: Doxazosin 4mg tab ORAL SCH ×2 (10:06→17:31)
[2017-09-13] MEDS: Allopurinol 100mg Tab ORAL SCH (10:07)
[2017-09-13] MEDS: HydrALAZINE 50mg tab ORAL SCH ×3 (10:08→17:31)
[2017-09-13] MEDS: Metoprolol Tartrate 50mg tab ORAL SCH ×2 (10:10→21:39)
--- NOTE | 2017-09-13 15:03 | Nephrology Progress Note ---
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 (4) CKD (chronic kidney disease) stage 4, GFR 15-29 ml/min (5) Hypertensive urgency (6) Toxic metabolic encephalopathy Plan continue iv fluids, titrate bp meds, creatinine still above baseline Subjective Constitutional: Reports: no symptoms HEENT: Reports: no symptoms Genitourinary: Reports: no symptoms Neurologic/Psychiatric: Reports: no symptoms Objective Objective Last 24 Hour Vital Signs Date Time Temp Pulse Resp B/P (MAP) Pulse Ox O2 Delivery O2 Flow Rate FiO2 09/13/17 15:00 67 17 143/71 99 Room Air 09/13/17 14:53 149/70 09/13/17 14:00 67 16 149/70 99 Room Air 09/13/17 13:00 98.3 66 18 155/76 99 Room Air 98.3 09/13/17 12:00 65 17 137/62 97 Room Air 09/13/17 12:00 70 09/13/17 11:00 69 16 153/77 97 Room Air 09/13/17 10:10 69 137/72 09/13/17 10:09 69 137/72 09/13/17 10:08 137/72 09/13/17 10:00 72 16 137/72 97 Room Air 09/13/17 09:00 97.8 63 14 168/80 99 Room Air 97.8 09/13/17 08:00 64 09/13/17 08:00 62 14 156/74 97 Room Air 09/13/17 07:00 66 19 165/76 98 Room Air 09/13/17 06:00 65 12 133/61 97 Room Air 09/13/17 05:00 63 12 168/78 99 Room Air 09/13/17 04:00 67 09/13/17 04:00 97.9 67 25 156/77 98 Room Air 97.9 09/13/17 03:00 65 19 151/72 98 Room Air 09/13/17 02:00 64 16 143/71 98 Room Air 09/13/17 01:00 62 14 137/73 98 Room Air 09/13/17 00:00 63 09/13/17 00:00 98.6 65 16 136/67 99 Room Air 98.6 09/12/17 23:00 68 19 144/80 99 Room Air 09/12/17 22:00 87 16 168/72 98 Room Air 09/12/17 21:52 169/75 09/12/17 21:00 88 17 169/75 99 Room Air 09/12/17 20:55 85 178/80 09/12/17 20:00 80 09/12/17 20:00 80 15 178/80 99 Room Air 09/12/17 19:00 80 15 175/78 99 Room Air 09/12/17 18:00 72 20 173/80 99 Room Air 09/12/17 17:26 175/90 09/12/17 17:00 68 20 179/77 99 Room Air 09/12/17 16:00 98.7 78 19 177/73 98 Room Air 98.7 09/12/17 16:00 77 Intake and Output 09/12/17 09/13/17 19:00 07:00 Intake Total 1670 ml 1380 ml Output Total 950 ml 325 ml Balance 720 ml 1055 ml Intake Oral 670 ml 480 ml IV Total 1000 ml 900 ml Output Urine Total 950 ml 325 ml Laboratory Tests 09/13/17 04:42: Sodium Level 140, Potassium Level 4.1, Chloride Level 107, Carbon Dioxide Level 24, Anion Gap 9, Blood Urea Nitrogen 40H, Creatinine 4.4H, Estimat Glomerular Filtration Rate , Glucose Level 103, Calcium Level 8.6, Total Bilirubin 0.2, Aspartate Amino Transf (AST/SGOT) 14L, Alanine Aminotransferase (ALT/SGPT) 15, Alkaline Phosphatase 65, Ammonia 18, Total Protein 5.5L, Albumin 2.1L, Globulin 3.4, Albumin/Globulin Ratio 0.6L Height (Feet): 5 Height (Inches): 9.00 Weight (Pounds): 155 General Appearance: no apparent distress EENT: normal ENT inspection Neck: normal alignment Cardiovascular: normal rate, regular rhythm Respiratory/Chest: lungs clear, normal breath sounds Abdomen: non tender, soft, no organomegaly Extremities: no calf tenderness 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
--- NOTE | 2017-09-13 17:13 | General Progress Note ---
Assessment/Plan Problem List: (1) Toxic metabolic encephalopathy ICD Codes: G92 - Toxic encephalopathy SNOMED: 578576241 (2) Hypertensive urgency ICD Codes: I16.0 - Hypertensive urgency SNOMED: 339605219 Status: stable, progressing Assessment/Plan topical and iv bp rx anxiolytics as needed follow up labs dvt/stress ulcer prophylaxis restraints for safety Subjective ROS Limited/Unobtainable: No Constitutional: Reports: malaise, weakness HEENT: Reports: no symptoms Cardiovascular: Reports: no symptoms Respiratory: Reports: no symptoms Gastrointestinal/Abdominal: Reports: no symptoms Genitourinary: Reports: no symptoms Neurologic/Psychiatric: Reports: no symptoms Endocrine: Reports: no symptoms Hematologic/Lymphatic: Reports: no symptoms Allergies: Coded Allergies: No Known Allergies (Verified Allergy, Mild, 08/30/06) All Systems: reviewed and negative except above Subjective no events. remains confused but less agitated. no fevers or chills. Bp high but better controlled. Objective Last 24 Hour Vital Signs Date Time Temp Pulse Resp B/P (MAP) Pulse Ox O2 Delivery O2 Flow Rate FiO2 09/13/17 16:00 98.0 67 17 151/67 99 Room Air 98.0 09/13/17 15:00 67 17 143/71 99 Room Air 09/13/17 14:53 149/70 09/13/17 14:00 67 16 149/70 99 Room Air 09/13/17 13:00 98.3 66 18 155/76 99 Room Air 98.3 09/13/17 12:00 65 17 137/62 97 Room Air 09/13/17 12:00 70 09/13/17 11:00 69 16 153/77 97 Room Air 09/13/17 10:10 69 137/72 09/13/17 10:09 69 137/72 09/13/17 10:08 137/72 09/13/17 10:00 72 16 137/72 97 Room Air 09/13/17 09:00 97.8 63 14 168/80 99 Room Air 97.8 09/13/17 08:00 64 09/13/17 08:00 62 14 156/74 97 Room Air 09/13/17 07:00 66 19 165/76 98 Room Air 09/13/17 06:00 65 12 133/61 97 Room Air 09/13/17 05:00 63 12 168/78 99 Room Air 09/13/17 04:00 67 09/13/17 04:00 97.9 67 25 156/77 98 Room Air 97.9 09/13/17 03:00 65 19 151/72 98 Room Air 09/13/17 02:00 64 16 143/71 98 Room Air 09/13/17 01:00 62 14 137/73 98 Room Air 09/13/17 00:00 63 09/13/17 00:00 98.6 65 16 136/67 99 Room Air 98.6 09/12/17 23:00 68 19 144/80 99 Room Air 09/12/17 22:00 87 16 168/72 98 Room Air 09/12/17 21:52 169/75 09/12/17 21:00 88 17 169/75 99 Room Air 09/12/17 20:55 85 178/80 09/12/17 20:00 80 09/12/17 20:00 80 15 178/80 99 Room Air 09/12/17 19:00 80 15 175/78 99 Room Air 09/12/17 18:00 72 20 173/80 99 Room Air 09/12/17 17:26 175/90 Intake and Output 09/12/17 09/13/17 19:00 07:00 Intake Total 1670 ml 1380 ml Output Total 950 ml 325 ml Balance 720 ml 1055 ml Intake Oral 670 ml 480 ml IV Total 1000 ml 900 ml Output Urine Total 950 ml 325 ml Laboratory Tests 09/13/17 04:42: Sodium Level 140, Potassium Level 4.1, Chloride Level 107, Carbon Dioxide Level 24, Anion Gap 9, Blood Urea Nitrogen 40H, Creatinine 4.4H, Estimat Glomerular Filtration Rate , Glucose Level 103, Calcium Level 8.6, Total Bilirubin 0.2, Aspartate Amino Transf (AST/SGOT) 14L, Alanine Aminotransferase (ALT/SGPT) 15, Alkaline Phosphatase 65, Ammonia 18, Total Protein 5.5L, Albumin 2.1L, Globulin 3.4, Albumin/Globulin Ratio 0.6L Height (Feet): 5 Height (Inches): 9.00 Weight (Pounds): 155 General Appearance: WD/WN, confused Neck: supple Cardiovascular: normal rate, regular rhythm Respiratory/Chest: chest wall non-tender, lungs clear, normal breath sounds Abdomen: normal bowel sounds, non tender, soft, no organomegaly Edema: no edema noted Arm (L), no edema noted Arm (R), no edema noted Leg (L), no edema noted Leg (R), no edema noted Pedal (L), no edema noted Pedal (R), no edema noted Generalized Trung Rm MD Sep 13, 2017 17:13
[2017-09-14] VITALS (15 sets, daily range): BP systolic 134–177; BP diastolic 38–83
--- NOTE | 2017-09-14 01:45 | Progress Note ---
DATE: 09/13/2017 CARDIOLOGY PROGRESS NOTE SUBJECTIVE: The patient remains in the intensive care unit. Condition remains critical with the guarded prognosis. The patient has not had any more episodes of agitation or confusion. His blood pressure control is improving, but still very labile up to 170 systolic at times. He is off IV therapy. OBJECTIVE: VITAL SIGNS: Blood pressure 143/71 to 168/78, heart rate 65 to 70, and respiratory rate 16 to 18. He is afebrile. HEENT: Conjunctivae pink. Oropharynx clear. NECK: Supple. Jugular venous pressure normal. LUNGS: Clear. CARDIAC: Regular rhythm and rate. Normal S1, S2 with a fourth heart sound. ABDOMEN: Soft and nontender. No bruits. EXTREMITIES: 1+ dependent edema. LABORATORY DATA: Sodium 140, potassium 4.1, bicarbonate 24, BUN 40, and creatinine 4.4. Albumin 2.1. Ammonia normal. IMPRESSION: 1. Hypertensive emergency, improved. 2. Hypertensive encephalopathy, improved. 3. Hypertensive heart disease. 4. Acute on chronic renal failure. 5. Type 2 diabetes mellitus. 6. Proteinuria. 7. Severe protein-calorie malnutrition. PLAN: 1. Cautious hydration. 2. Titrate antihypertensives. 3. Consider transfer out of ICU if blood pressure parameters remain below 160 systolic and he does not have any more episodes of confusion and agitation. 4. Monitor volume status and cardiorenal parameters. 5. DVT and stress ulcer prophylaxes. Wilman Srivastava M.D. DR: CHRISTI JOB#: [id number] CC:
[2017-09-14] MEDS: GlipiZIDE 5mg tab ORAL SCH ×2 (06:39→17:09)
[2017-09-14 07:29] LABS: ANION GAP 11 mmol/L (5-15); BLOOD UREA NITROGEN 42 mg/dL (7-18); CALCIUM 8.3 MG/DL (8.5-10.1); CARBON DIOXIDE 21 MMOL/L (21-32); CHLORIDE 109 MMOL/L (98-107); CREATININE 4.6 MG/DL (0.55-1.30); POTASSIUM 4.4 MMOL/L (3.5-5.1); SODIUM 141 MMOL/L (136-145)
[2017-09-14] MEDS: Doxazosin 4mg tab ORAL SCH ×2 (08:32→17:08)
[2017-09-14] MEDS: Metoprolol Tartrate 50mg tab ORAL SCH ×2 (08:32→21:26)
[2017-09-14] MEDS: Aspirin EC 81mg tab ORAL SCH (08:32)
[2017-09-14] MEDS: Calcitriol 0.25mcg Cap ORAL SCH (08:32)
[2017-09-14] MEDS: Allopurinol 100mg Tab ORAL SCH (08:32)
[2017-09-14] MEDS: HydrALAZINE 50mg tab ORAL SCH ×3 (08:33→17:09)
[2017-09-14] MEDS: Heparin 5000 units/ml inj SUBQ SCH ×2 (08:34→21:25)
[2017-09-14] MEDS: 1/2NS w/KCl 20mEq 1000ml 1,000 ML IV SCH ×3 (11:30→16:24)
[2017-09-14] MEDS: cloNIDine 0.2mg Tab ORAL PRN (12:23)
[2017-09-14] MEDS ORDERED: 1/2NS w/KCl 20mEq 1000ml 1,000 ML IV SCH (14:00)
[2017-09-14] MEDS ORDERED: Haloperidol 5mg/ml Inj IM PRN ×2 (14:30→15:00)
--- NOTE | 2017-09-14 14:58 | Nephrology Progress Note ---
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 (4) CKD (chronic kidney disease) stage 4, GFR 15-29 ml/min (5) Hypertensive urgency (6) Toxic metabolic encephalopathy Plan continue iv fluids, titrate bp meds, creatinine still above baseline but leveling off Subjective Constitutional: Reports: weakness HEENT: Reports: no symptoms Genitourinary: Reports: no symptoms Neurologic/Psychiatric: Reports: no symptoms Objective Objective Last 24 Hour Vital Signs Date Time Temp Pulse Resp B/P (MAP) Pulse Ox O2 Delivery O2 Flow Rate FiO2 09/14/17 12:23 167/73 09/14/17 12:23 167/73 09/14/17 12:00 Room Air 09/14/17 12:00 98.6 71 18 167/73 (104) 98 98.6 09/14/17 12:00 73 09/14/17 11:00 70 18 166/83 97 Room Air 09/14/17 10:00 69 14 154/71 97 Room Air 09/14/17 09:00 69 16 160/70 98 Room Air 09/14/17 08:33 74 155/75 09/14/17 08:33 155/75 09/14/17 08:32 74 155/75 09/14/17 08:00 97.9 74 17 155/75 97 Room Air 97.9 09/14/17 08:00 71 09/14/17 07:00 72 12 172/80 97 Room Air 09/14/17 06:00 72 17 177/79 97 Room Air 09/14/17 05:00 67 17 161/38 97 Room Air 09/14/17 04:00 71 09/14/17 04:00 98.0 72 17 148/71 99 Room Air 98.0 09/14/17 03:00 69 17 162/68 97 Room Air 09/14/17 02:00 76 17 146/62 97 Room Air 09/14/17 01:00 76 17 161/69 97 Room Air 09/14/17 00:00 98.0 69 17 169/73 99 Room Air 98.0 09/13/17 23:00 71 17 154/61 99 Room Air 09/13/17 22:00 75 14 159/76 99 Room Air 09/13/17 21:39 79 159/72 09/13/17 21:00 75 14 159/72 99 Room Air 09/13/17 20:00 69 09/13/17 20:00 98.2 79 18 176/73 99 Room Air 98.2 09/13/17 19:00 80 16 169/87 99 Room Air 09/13/17 18:00 75 16 174/85 99 Room Air 09/13/17 17:31 143/65 09/13/17 17:00 77 17 143/65 99 Room Air 09/13/17 16:00 98.0 67 17 151/67 99 Room Air 98.0 09/13/17 16:00 66 09/13/17 15:00 67 17 143/71 99 Room Air Intake and Output 09/13/17 09/14/17 19:00 07:00 Intake Total 1500 ml 1450 ml Output Total 930 ml 1250 ml Balance 570 ml 200 ml Intake Oral 600 ml 550 ml IV Total 900 ml 900 ml Output Urine Total 930 ml 1250 ml Laboratory Tests 09/14/17 05:34: Sodium Level 141, Potassium Level 4.4, Chloride Level 109H, Carbon Dioxide Level 21, Anion Gap 11, Blood Urea Nitrogen 42H, Creatinine 4.6H, Estimat Glomerular Filtration Rate , Glucose Level 92, Calcium Level 8.3L Height (Feet): 5 Height (Inches): 9.00 Weight (Pounds): 155 General Appearance: no apparent distress, alert EENT: normal ENT inspection Neck: normal alignment Cardiovascular: normal rate Respiratory/Chest: lungs clear Abdomen: non tender, soft, no organomegaly Extremities: trace edema Neurologic: speech clinician II-XII grossly normal SHAKEEL THOMASON Sep 14, 2017 14:58
[2017-09-14 15:13] LABS: CREATININE 4.5 MG/DL (0.55-1.30)
--- NOTE | 2017-09-14 15:15 | Progress Note ---
DATE: 09/14/2017 CARDIOLOGY PROGRESS NOTE SUBJECTIVE: The patient has no complaints. Blood pressure parameters remain somewhat elevated, was overall improved. OBJECTIVE: VITAL SIGNS: Blood pressure 177/79 earlier this morning, now 155/75, heart rate 74, respiratory rate 17, and afebrile. LUNGS: Clear. CARDIAC: Regular. Normal S1, S2 with a fourth heart sound. ABDOMEN: Soft. EXTREMITIES: With trace dependent edema. LABORATORY DATA: BUN 42, creatinine 4.6, potassium 4.4. Albumin 2.1. IMPRESSION: Improved, but tenuous. PLAN: Transfer out of ICU. Continued blood pressure titration. Monitor cardiorenal parameters. May need hemodialysis and ultrafiltration. Monitored for encephalopathic symptoms. Wilman Srivastava M.D. DR: PRABHJOT JOB#: [id number] CC:
[2017-09-14] MEDS ORDERED: cloNIDine 0.2mg Tab ORAL PRN (16:30)
[2017-09-14] MEDS ORDERED: GlipiZIDE 5mg tab ORAL SCH (16:30)
--- NOTE | 2017-09-14 16:51 | General Progress Note ---
Assessment/Plan Problem List: (1) Toxic metabolic encephalopathy ICD Codes: G92 - Toxic encephalopathy SNOMED: 221915130 (2) Hypertensive urgency ICD Codes: I16.0 - Hypertensive urgency SNOMED: 193273427 Status: stable, progressing Assessment/Plan topical and iv bp rx anxiolytics as needed follow up labs dvt/stress ulcer prophylaxis restraints for safety d/w dtr poc Subjective ROS Limited/Unobtainable: No Constitutional: Reports: malaise, weakness HEENT: Reports: no symptoms Cardiovascular: Reports: no symptoms Respiratory: Reports: no symptoms Gastrointestinal/Abdominal: Reports: no symptoms Genitourinary: Reports: no symptoms Neurologic/Psychiatric: Reports: anxiety, emotional problems, pre-existing deficit Endocrine: Reports: no symptoms Hematologic/Lymphatic: Reports: no symptoms Allergies: Coded Allergies: No Known Allergies (Verified Allergy, Mild, 08/30/06) All Systems: reviewed and negative except above Subjective no events. less confused. less agitated. no fevers or chills. Bp high but better controlled. Objective Last 24 Hour Vital Signs Date Time Temp Pulse Resp B/P (MAP) Pulse Ox O2 Delivery O2 Flow Rate FiO2 09/14/17 12:23 167/73 09/14/17 12:23 167/73 09/14/17 12:00 Room Air 09/14/17 12:00 98.6 71 18 167/73 (104) 98 98.6 09/14/17 12:00 73 09/14/17 11:00 70 18 166/83 97 Room Air 09/14/17 10:00 69 14 154/71 97 Room Air 09/14/17 09:00 69 16 160/70 98 Room Air 09/14/17 08:33 74 155/75 09/14/17 08:33 155/75 09/14/17 08:32 74 155/75 09/14/17 08:00 97.9 74 17 155/75 97 Room Air 97.9 09/14/17 08:00 71 09/14/17 07:00 72 12 172/80 97 Room Air 09/14/17 06:00 72 17 177/79 97 Room Air 09/14/17 05:00 67 17 161/38 97 Room Air 09/14/17 04:00 71 09/14/17 04:00 98.0 72 17 148/71 99 Room Air 98.0 09/14/17 03:00 69 17 162/68 97 Room Air 09/14/17 02:00 76 17 146/62 97 Room Air 09/14/17 01:00 76 17 161/69 97 Room Air 09/14/17 00:00 98.0 69 17 169/73 99 Room Air 98.0 09/13/17 23:00 71 17 154/61 99 Room Air 09/13/17 22:00 75 14 159/76 99 Room Air 09/13/17 21:39 79 159/72 09/13/17 21:00 75 14 159/72 99 Room Air 09/13/17 20:00 69 09/13/17 20:00 98.2 79 18 176/73 99 Room Air 98.2 09/13/17 19:00 80 16 169/87 99 Room Air 09/13/17 18:00 75 16 174/85 99 Room Air 09/13/17 17:31 143/65 09/13/17 17:00 77 17 143/65 99 Room Air Intake and Output 09/13/17 09/14/17 19:00 07:00 Intake Total 1500 ml 1450 ml Output Total 930 ml 1250 ml Balance 570 ml 200 ml Intake Oral 600 ml 550 ml IV Total 900 ml 900 ml Output Urine Total 930 ml 1250 ml Laboratory Tests 09/14/17 05:34: Sodium Level 141, Potassium Level 4.4, Chloride Level 109H, Carbon Dioxide Level 21, Anion Gap 11, Blood Urea Nitrogen 42H, Creatinine 4.6H, Estimat Glomerular Filtration Rate , Glucose Level 92, Calcium Level 8.3L 09/14/17 06:30: Creatinine 4.5H, Estimat Glomerular Filtration Rate Height (Feet): 5 Height (Inches): 9.00 Weight (Pounds): 155 General Appearance: WD/WN, alert Neck: supple Cardiovascular: normal peripheral pulses, normal rate, regular rhythm Respiratory/Chest: chest wall non-tender, lungs clear, normal breath sounds Abdomen: normal bowel sounds, non tender, soft, no organomegaly Edema: no edema noted Arm (L), no edema noted Arm (R), no edema noted Leg (L), no edema noted Leg (R), no edema noted Pedal (L), no edema noted Pedal (R), no edema noted Generalized Neurologic: alert, responsive UTrung gerber MD Sep 14, 2017 16:51
[2017-09-14] MEDS ORDERED: HydrALAZINE 50mg tab ORAL SCH ×2 (18:00)
[2017-09-14] MEDS ORDERED: Doxazosin 4mg tab ORAL SCH ×2 (18:00)
[2017-09-14] MEDS ORDERED: Heparin 5000 units/ml inj SUBQ SCH (21:00)
[2017-09-14] MEDS ORDERED: Metoprolol Tartrate 50mg tab ORAL SCH (21:00)
[2017-09-15] VITALS: BP 149/70
[2017-09-15 04:00] VITALS: BP 137/61
[2017-09-15] MEDS: 1/2NS w/KCl 20mEq 1000ml 1,000 ML IV SCH (04:11)
[2017-09-15] MEDS: GlipiZIDE 5mg tab ORAL SCH ×2 (06:04→17:13)
[2017-09-15 08:00] VITALS: BP 133/66
[2017-09-15 08:52] LABS: BASOPHILS % (AUTO) 0.7 % (0.0-2.0); EOSINOPHILS % (AUTO) 1.9 % (0.0-3.0); HEMATOCRIT 28.7 % (42.0-52.0); HEMOGLOBIN 9.5 G/DL (14.2-18.0); MEAN CORPUSCULAR VOLUME 88 FL (80-99); MONOCYTES % (AUTO) 6.2 % (1.0-10.0); NEUTROPHILS % (AUTO) 73.1 % (45.0-75.0); PLATELET COUNT 200 K/UL (150-450); RED BLOOD COUNT 3.26 M/UL (4.70-6.10); RED CELL DISTRIBUTION WIDTH 12.4 % (11.6-14.8); WHITE BLOOD COUNT 8.2 K/UL (4.8-10.8)
[2017-09-15] MEDS ORDERED: Tubing IV Secondary IV ONE (08:57)
[2017-09-15] MEDS ORDERED: NS 275ml ONE (08:57)
[2017-09-15] MEDS ORDERED: D5NS 1000ml IV ONE (08:57)
[2017-09-15] MEDS ORDERED: Calcitriol 0.25mcg Cap ORAL SCH (09:00)
[2017-09-15] MEDS ORDERED: Allopurinol 100mg Tab ORAL SCH (09:00)
[2017-09-15] MEDS ORDERED: Aspirin EC 81mg tab ORAL SCH (09:00)
[2017-09-15] MEDS: Calcitriol 0.25mcg Cap ORAL SCH (09:07)
[2017-09-15] MEDS: HydrALAZINE 50mg tab ORAL SCH ×3 (09:07→17:14)
[2017-09-15] MEDS: Allopurinol 100mg Tab ORAL SCH (09:07)
[2017-09-15] MEDS: Aspirin EC 81mg tab ORAL SCH (09:07)
[2017-09-15] MEDS: Metoprolol Tartrate 50mg tab ORAL SCH ×2 (09:08→20:38)
[2017-09-15] MEDS: Doxazosin 4mg tab ORAL SCH ×2 (09:08→17:14)
[2017-09-15] MEDS: Heparin 5000 units/ml inj SUBQ SCH ×2 (09:09→20:38)
[2017-09-15 09:21] LABS: ALANINE AMINOTRANSFERASE 47 U/L (12-78); ALBUMIN 2.4 G/DL (3.4-5.0); ALBUMIN/GLOBULIN RATIO 0.6 (1.0-2.7); ALKALINE PHOSPHATASE 78 U/L (46-116); ANION GAP 9 mmol/L (5-15); ASPARTATE AMINO TRANSFERASE 39 U/L (15-37); BILIRUBIN,TOTAL 0.3 MG/DL (0.2-1.0); BLOOD UREA NITROGEN 46 mg/dL (7-18); CALCIUM 8.7 MG/DL (8.5-10.1); CARBON DIOXIDE 22 MMOL/L (21-32); CHLORIDE 109 MMOL/L (98-107); CREATININE 4.6 MG/DL (0.55-1.30); POTASSIUM 4.3 MMOL/L (3.5-5.1); SODIUM 140 MMOL/L (136-145)
--- NOTE | 2017-09-15 11:19 | General Progress Note ---
Assessment/Plan Problem List: (1) Toxic metabolic encephalopathy ICD Codes: G92 - Toxic encephalopathy SNOMED: 627515458 (2) Hypertensive urgency ICD Codes: I16.0 - Hypertensive urgency SNOMED: 430567538 Status: stable, progressing Assessment/Plan cont bp rx anxiolytics as needed follow up labs dvt/stress ulcer prophylaxis restraints for safety d/w dtr poc Subjective ROS Limited/Unobtainable: No Constitutional: Reports: malaise, weakness HEENT: Reports: no symptoms Cardiovascular: Reports: no symptoms Respiratory: Reports: no symptoms Gastrointestinal/Abdominal: Reports: no symptoms Genitourinary: Reports: no symptoms Neurologic/Psychiatric: Reports: no symptoms Endocrine: Reports: no symptoms Hematologic/Lymphatic: Reports: no symptoms Allergies: Coded Allergies: No Known Allergies (Verified Allergy, Mild, 08/30/06) All Systems: reviewed and negative except above Subjective back to baseline. no fevers or chills. Bp controlled. labs noted Objective Last 24 Hour Vital Signs Date Time Temp Pulse Resp B/P (MAP) Pulse Ox O2 Delivery O2 Flow Rate FiO2 09/15/17 09:08 77 133/66 09/15/17 09:07 77 133/66 09/15/17 09:07 133/66 09/15/17 09:00 Room Air 09/15/17 08:00 75 09/15/17 08:00 97.4 77 19 133/66 (88) 99 97.4 09/15/17 04:00 72 09/15/17 04:00 97.7 72 19 137/61 (86) 96 97.7 09/15/17 00:00 97.9 75 18 149/70 (96) 96 97.9 09/15/17 00:00 68 09/14/17 22:12 68 09/14/17 21:26 72 149/70 09/14/17 21:00 Room Air 09/14/17 20:00 97.7 72 19 149/70 (96) 97 97.7 09/14/17 17:09 134/69 09/14/17 17:08 67 134/69 09/14/17 16:00 97.7 67 20 134/69 (90) 98 97.7 09/14/17 16:00 Room Air 09/14/17 16:00 64 09/14/17 12:23 167/73 09/14/17 12:23 167/73 09/14/17 12:00 Room Air 09/14/17 12:00 98.6 71 18 167/73 (104) 98 98.6 09/14/17 12:00 73 Intake and Output 09/14/17 09/15/17 19:00 07:00 Intake Total 1320 ml 240 ml Output Total 770 ml 750 ml Balance 550 ml -510 ml Intake Oral 700 ml 240 ml IV Total 600 ml Other 20 ml Output Urine Total 770 ml 750 ml # Bowel Movements 1 Laboratory Tests 09/15/17 07:40: White Blood Count 8.2, Red Blood Count 3.26L, Hemoglobin 9.5L, Hematocrit 28.7L , Mean Corpuscular Volume 88, Mean Corpuscular Hemoglobin 29.0, Mean Corpuscular Hemoglobin Concent 33.0, Red Cell Distribution Width 12.4, Platelet Count 200, Mean Platelet Volume 8.1, Neutrophils (%) (Auto) 73.1, Lymphocytes (% ) (Auto) 18.0L, Monocytes (%) (Auto) 6.2, Eosinophils (%) (Auto) 1.9, Basophils (%) (Auto) 0.7, Sodium Level 140, Potassium Level 4.3, Chloride Level 109H, Carbon Dioxide Level 22, Anion Gap 9, Blood Urea Nitrogen 46H, Creatinine 4.6H, Estimat Glomerular Filtration Rate , Glucose Level 95, Calcium Level 8.7, Total Bilirubin 0.3, Aspartate Amino Transf (AST/SGOT) 39H, Alanine Aminotransferase ( ALT/SGPT) 47, Alkaline Phosphatase 78, Total Protein 6.2L, Albumin 2.4L, Globulin 3.8, Albumin/Globulin Ratio 0.6L Height (Feet): 5 Height (Inches): 9.00 Weight (Pounds): 190 Objective General Appearance: WD/WN, alert Neck: supple Cardiovascular: normal peripheral pulses, normal rate, regular rhythm Respiratory/Chest: chest wall non-tender, lungs clear, normal breath sounds Abdomen: normal bowel sounds, non tender, soft, no organomegaly Edema: no edema noted Arm (L), no edema noted Arm (R), no edema noted Leg (L), no edema noted Leg (R), no edema noted Pedal (L), no edema noted Pedal (R), no edema noted Generalized Neurologic: alert, responsive [place],Trung M. MD Sep 15, 2017 11:19
[2017-09-15 11:57] VITALS: BP 137/71
--- NOTE | 2017-09-15 14:51 | Nephrology Progress Note ---
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 (4) CKD (chronic kidney disease) stage 4, GFR 15-29 ml/min (5) Hypertensive urgency (6) Toxic metabolic encephalopathy Plan discontinue iv fluids, titrate bp meds, creatinine still above baseline but leveling off, discussed possible access for dialysis soon Subjective Constitutional: Reports: no symptoms HEENT: Reports: no symptoms Genitourinary: Reports: no symptoms Neurologic/Psychiatric: Reports: no symptoms Objective Objective Last 24 Hour Vital Signs Date Time Temp Pulse Resp B/P (MAP) Pulse Ox O2 Delivery O2 Flow Rate FiO2 09/15/17 13:01 137/71 09/15/17 11:57 98.6 76 21 137/71 (93) 98 98.6 09/15/17 09:08 77 133/66 09/15/17 09:07 77 133/66 09/15/17 09:07 133/66 09/15/17 09:00 Room Air 09/15/17 08:00 75 09/15/17 08:00 97.4 77 19 133/66 (88) 99 97.4 09/15/17 04:00 72 09/15/17 04:00 97.7 72 19 137/61 (86) 96 97.7 09/15/17 00:00 97.9 75 18 149/70 (96) 96 97.9 09/15/17 00:00 68 09/14/17 22:12 68 09/14/17 21:26 72 149/70 09/14/17 21:00 Room Air 09/14/17 20:00 97.7 72 19 149/70 (96) 97 97.7 09/14/17 17:09 134/69 09/14/17 17:08 67 134/69 09/14/17 16:00 97.7 67 20 134/69 (90) 98 97.7 09/14/17 16:00 Room Air 09/14/17 16:00 64 Intake and Output 09/14/17 09/15/17 19:00 07:00 Intake Total 1320 ml 240 ml Output Total 770 ml 750 ml Balance 550 ml -510 ml Intake Oral 700 ml 240 ml IV Total 600 ml Other 20 ml Output Urine Total 770 ml 750 ml # Bowel Movements 1 Laboratory Tests 09/15/17 07:40: White Blood Count 8.2, Red Blood Count 3.26L, Hemoglobin 9.5L, Hematocrit 28.7L , Mean Corpuscular Volume 88, Mean Corpuscular Hemoglobin 29.0, Mean Corpuscular Hemoglobin Concent 33.0, Red Cell Distribution Width 12.4, Platelet Count 200, Mean Platelet Volume 8.1, Neutrophils (%) (Auto) 73.1, Lymphocytes (% ) (Auto) 18.0L, Monocytes (%) (Auto) 6.2, Eosinophils (%) (Auto) 1.9, Basophils (%) (Auto) 0.7, Sodium Level 140, Potassium Level 4.3, Chloride Level 109H, Carbon Dioxide Level 22, Anion Gap 9, Blood Urea Nitrogen 46H, Creatinine 4.6H, Estimat Glomerular Filtration Rate , Glucose Level 95, Calcium Level 8.7, Total Bilirubin 0.3, Aspartate Amino Transf (AST/SGOT) 39H, Alanine Aminotransferase ( ALT/SGPT) 47, Alkaline Phosphatase 78, Total Protein 6.2L, Albumin 2.4L, Globulin 3.8, Albumin/Globulin Ratio 0.6L Height (Feet): 5 Height (Inches): 9.00 Weight (Pounds): 190 General Appearance: no apparent distress, alert EENT: normal ENT inspection Neck: normal alignment Cardiovascular: normal rate Respiratory/Chest: lungs clear Abdomen: non tender Extremities: trace edema Neurologic: metal bonder II-XII grossly normal SHAKEEL THOMASON Sep 15, 2017 14:51
[2017-09-15 16:09] VITALS: BP 134/65
[2017-09-15 20:00] VITALS: BP 141/69
[2017-09-16] VITALS: BP 137/76
[2017-09-16 04:00] VITALS: BP 142/65
[2017-09-16] MEDS: GlipiZIDE 5mg tab ORAL SCH ×2 (06:07→16:35)
[2017-09-16 08:00] VITALS: BP 139/65
[2017-09-16] MEDS: Doxazosin 4mg tab ORAL SCH ×2 (09:03→18:28)
[2017-09-16] MEDS: Metoprolol Tartrate 50mg tab ORAL SCH ×2 (09:04→20:43)
[2017-09-16] MEDS: Calcitriol 0.25mcg Cap ORAL SCH (09:04)
[2017-09-16] MEDS: Aspirin EC 81mg tab ORAL SCH (09:04)
[2017-09-16] MEDS: HydrALAZINE 50mg tab ORAL SCH ×3 (09:04→18:28)
[2017-09-16] MEDS: Allopurinol 100mg Tab ORAL SCH (09:05)
[2017-09-16] MEDS: Heparin 5000 units/ml inj SUBQ SCH ×2 (09:08→20:43)
--- NOTE | 2017-09-16 10:03 | General Progress Note ---
Assessment/Plan Problem List: (1) Toxic metabolic encephalopathy ICD Codes: G92 - Toxic encephalopathy SNOMED: 899064038 (2) Hypertensive urgency ICD Codes: I16.0 - Hypertensive urgency SNOMED: 509761721 Status: stable, progressing Assessment/Plan cont bp rx anxiolytics as needed follow up labs dvt/stress ulcer prophylaxis restraints for safety d/w dtr poc dc planning tomorrow if bp stable Subjective ROS Limited/Unobtainable: No Constitutional: Reports: malaise, weakness HEENT: Reports: no symptoms Cardiovascular: Reports: no symptoms Respiratory: Reports: no symptoms Gastrointestinal/Abdominal: Reports: no symptoms Genitourinary: Reports: no symptoms Neurologic/Psychiatric: Reports: no symptoms Endocrine: Reports: no symptoms Hematologic/Lymphatic: Reports: no symptoms Allergies: Coded Allergies: No Known Allergies (Verified Allergy, Mild, 08/30/06) All Systems: reviewed and negative except above Subjective back to baseline. no fevers or chills. Bp controlled. labs noted Objective Last 24 Hour Vital Signs Date Time Temp Pulse Resp B/P (MAP) Pulse Ox O2 Delivery O2 Flow Rate FiO2 09/16/17 09:04 159/79 09/16/17 09:04 84 159/79 09/16/17 09:03 84 159/79 09/16/17 04:00 98.4 78 20 142/65 (90) 95 98.4 09/16/17 04:00 76 09/16/17 00:00 98.2 82 20 137/76 (96) 91 98.2 09/16/17 00:00 77 09/15/17 21:00 Room Air 09/15/17 20:38 69 141/69 09/15/17 20:00 69 09/15/17 20:00 98.2 78 20 141/69 (93) 94 98.2 09/15/17 17:14 70 134/65 09/15/17 17:14 134/65 09/15/17 16:09 97.7 70 20 134/65 (88) 99 97.7 09/15/17 16:00 74 09/15/17 13:01 137/71 09/15/17 12:00 63 09/15/17 11:57 98.6 76 21 137/71 (93) 98 98.6 Intake and Output 09/15/17 09/16/17 19:00 07:00 Intake Total 1650 ml Output Total 400 ml 350 ml Balance 1250 ml -350 ml Intake Oral 1200 ml IV Total 450 ml Output Urine Total 400 ml 350 ml # Voids 1 Height (Feet): 5 Height (Inches): 9.00 Weight (Pounds): 202 Objective General Appearance: WD/WN, alert Neck: supple Cardiovascular: normal peripheral pulses, normal rate, regular rhythm Respiratory/Chest: chest wall non-tender, lungs clear, normal breath sounds Abdomen: normal bowel sounds, non tender, soft, no organomegaly Edema: no edema noted Arm (L), no edema noted Arm (R), no edema noted Leg (L), no edema noted Leg (R), no edema noted Pedal (L), no edema noted Pedal (R), no edema noted Generalized Neurologic: alert, responsive Trung Rm MD Sep 16, 2017 10:03
[2017-09-16] MEDS ORDERED: Sterile Water Irrig 1000ml IRRIG ONE (11:01)
[2017-09-16 12:00] VITALS: BP 123/54
--- NOTE | 2017-09-16 12:02 | Nephrology Progress Note ---
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 (4) CKD (chronic kidney disease) stage 4, GFR 15-29 ml/min (5) Hypertensive urgency (6) Toxic metabolic encephalopathy Plan discontinue iv fluids, titrate bp meds gradually, creatinine still above baseline but leveling off, discussed possible access for dialysis soon , checking 24hr urine, Subjective Constitutional: Reports: no symptoms HEENT: Reports: no symptoms Genitourinary: Reports: no symptoms Neurologic/Psychiatric: Reports: no symptoms Objective Objective Last 24 Hour Vital Signs Date Time Temp Pulse Resp B/P (MAP) Pulse Ox O2 Delivery O2 Flow Rate FiO2 09/16/17 09:04 159/79 09/16/17 09:04 84 159/79 09/16/17 09:03 84 159/79 09/16/17 08:00 98.1 75 18 139/65 (89) 95 98.1 09/16/17 04:00 98.4 78 20 142/65 (90) 95 98.4 09/16/17 04:00 76 09/16/17 00:00 98.2 82 20 137/76 (96) 91 98.2 09/16/17 00:00 77 09/15/17 21:00 Room Air 09/15/17 20:38 69 141/69 09/15/17 20:00 69 09/15/17 20:00 98.2 78 20 141/69 (93) 94 98.2 09/15/17 17:14 70 134/65 09/15/17 17:14 134/65 09/15/17 16:09 97.7 70 20 134/65 (88) 99 97.7 09/15/17 16:00 74 09/15/17 13:01 137/71 Intake and Output 09/15/17 09/16/17 19:00 07:00 Intake Total 1650 ml Output Total 400 ml 350 ml Balance 1250 ml -350 ml Intake Oral 1200 ml IV Total 450 ml Output Urine Total 400 ml 350 ml # Voids 1 Laboratory Tests 09/16/17 06:30: Creatinine [Pending], Estimat Glomerular Filtration Rate [Pending] Height (Feet): 5 Height (Inches): 9.00 Weight (Pounds): 202 General Appearance: no apparent distress, alert EENT: normal ENT inspection Neck: normal alignment Cardiovascular: normal rate, regular rhythm Respiratory/Chest: lungs clear Abdomen: non tender Extremities: trace edema 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
[2017-09-16 13:15] LABS: CREATININE 4.5 MG/DL (0.55-1.30)
[2017-09-16 15:46] VITALS: BP 142/71
[2017-09-16 20:00] VITALS: BP 151/70
[2017-09-17] VITALS: BP 128/63
[2017-09-17 04:00] VITALS: BP 133/64
[2017-09-17] MEDS: GlipiZIDE 5mg tab ORAL SCH (06:05)
[2017-09-17 08:00] VITALS: BP 135/63
[2017-09-17 08:01] LABS: ANION GAP 9 mmol/L (5-15); BLOOD UREA NITROGEN 55 mg/dL (7-18); CARBON DIOXIDE 21 MMOL/L (21-32); CHLORIDE 111 MMOL/L (98-107); CREATININE 5.3 MG/DL (0.55-1.30); POTASSIUM 4.2 MMOL/L (3.5-5.1); SODIUM 141 MMOL/L (136-145)
[2017-09-17] MEDS: Calcitriol 0.25mcg Cap ORAL SCH (09:10)
[2017-09-17] MEDS: Doxazosin 4mg tab ORAL SCH (09:11)
[2017-09-17 09:12] VITALS: BP 135/63
[2017-09-17] MEDS: HydrALAZINE 50mg tab ORAL SCH (09:12)
[2017-09-17] MEDS: Allopurinol 100mg Tab ORAL SCH (09:12)
[2017-09-17] MEDS: Aspirin EC 81mg tab ORAL SCH (09:12)
[2017-09-17] MEDS: Metoprolol Tartrate 50mg tab ORAL SCH (09:12)
[2017-09-17] MEDS: Heparin 5000 units/ml inj SUBQ SCH (09:14)
--- NOTE | 2017-09-17 10:09 | Nephrology Progress Note ---
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 (4) CKD (chronic kidney disease) stage 4, GFR 15-29 ml/min (5) Hypertensive urgency (6) Toxic metabolic encephalopathy Plan discontinue iv fluids, titrate bp meds gradually, creatinine still above baseline but leveling off, discussed possible access for dialysis soon , checking 24hr urine, will f/u in office Subjective Constitutional: Reports: no symptoms HEENT: Reports: no symptoms Genitourinary: Reports: no symptoms Neurologic/Psychiatric: Reports: no symptoms Objective Objective Last 24 Hour Vital Signs Date Time Temp Pulse Resp B/P (MAP) Pulse Ox O2 Delivery O2 Flow Rate FiO2 09/17/17 09:12 135/63 09/17/17 09:12 84 135/63 09/17/17 09:10 84 135/63 09/17/17 08:00 98.1 84 18 135/63 (87) 95 98.1 09/17/17 04:00 99.1 82 20 133/64 (87) 93 99.1 09/17/17 04:00 81 09/17/17 00:00 99.3 79 20 128/63 (84) 95 99.3 09/17/17 00:00 87 89 90 09/17/17 00:00 74 09/16/17 21:00 Room Air 09/16/17 20:43 84 151/70 09/16/17 20:00 79 09/16/17 20:00 98.2 87 20 151/70 (97) 96 98.2 09/16/17 18:28 86 149/69 09/16/17 18:28 149/69 09/16/17 16:20 86 09/16/17 16:10 86 09/16/17 16:00 95 09/16/17 16:00 76 09/16/17 15:46 97.8 81 20 142/71 (94) 95 97.8 09/16/17 14:59 159/79 09/16/17 12:00 97.5 70 20 123/54 (77) 96 97.5 09/16/17 12:00 76 Intake and Output 09/16/17 09/17/17 19:00 07:00 Intake Total 720 ml Output Total 150 ml Balance 570 ml Intake Oral 720 ml Output Urine Total 150 ml # Voids 3 3 Laboratory Tests 09/17/17 06:40: Sodium Level 141, Potassium Level 4.2, Chloride Level 111H, Carbon Dioxide Level 21, Anion Gap 9, Blood Urea Nitrogen 55H, Creatinine 5.3H, Estimat Glomerular Filtration Rate , Glucose Level 81, Calcium Level 9.0 Height (Feet): 5 Height (Inches): 9.00 Weight (Pounds): 202 General Appearance: no apparent distress EENT: normal ENT inspection Neck: normal alignment Cardiovascular: normal rate, regular rhythm Respiratory/Chest: lungs clear Abdomen: non tender, no organomegaly Extremities: trace edema 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
[2017-09-17] MEDS ORDERED: Pneumococcal Vaccine 25mcg/0.5ml IM ONE (11:00)
--- NOTE | 2017-09-18 00:30 | Discharge Summary ---
DATE OF ADMISSION: 09/10/2017 DATE OF DISCHARGE: 09/17/2017 ADMISSION DIAGNOSES: 1. Hypertensive urgency/emergency. 2. Toxic metabolic encephalopathy. 3. Acute on chronic renal failure. DISCHARGE DIAGNOSES: 1. Hypertensive urgency/emergency. 2. Toxic metabolic encephalopathy. 3. Acute on chronic renal failure. HOSPITAL COURSE: The patient was admitted with complaints of altered mental status and hypertensive emergency. He was in the intensive care unit initially on the nicardipine drip. He was gradually weaned off and switched to an oral regimen. His hospital course was complicated by delirium secondary to hypertension, this improved. On discharge, he was stable. He will be discharged home with close outpatient followup. Home health has been ordered. DISCHARGE MEDICATIONS: Please see discharge medication list for discharge medications. DIET: Cardiac renal diet. ACTIVITY: Ad-siria. FOLLOWUP: The patient to follow up in the office in one week. Trung Rm M.D. DR: LULU JOB#: [id number] CC:
== END 2017-09-17 12:05 | disposition home or self-care (01) | DRG 304 ==
LOC: EMR 15:35 → EDBEDREQ 15:42 → EDBEDREQSVC 16:45 → EDBEDREQ 16:45 → ICU 16:48 → EDBEDREQSVC 17:07 → EDBEDREQ 17:07 → 2E 09-14 14:33
DX: I16.1 Hypertensive emergency (principal); G92 Toxic encephalopathy; E43 Unspecified severe protein-calorie malnutrition; I50.33 Acute on chronic diastolic (congestive) heart failure; N18.4 Chronic kidney disease, stage 4 (severe); N17.9 Acute kidney failure, unspecified; C18.9 Malignant neoplasm of colon, unspecified; E11.22 Type 2 diabetes mellitus with diabetic chronic kidney disease; E78.5 Hyperlipidemia, unspecified; E11.21 Type 2 diabetes mellitus with diabetic nephropathy; I13.0 Hypertensive heart and chronic kidney disease with heart failure and stage 1 through stage 4 chronic kidney disease, or unspecified chronic kidney disease; E87.6 Hypokalemia; E86.0 Dehydration; Z78.1 Physical restraint status; Z68.29 Body mass index [BMI] 29.0-29.9, adult; Z91.14 Patient's other noncompliance with medication regimen; Z23 Encounter for immunization
CPT/HCPCS: 36415; 70450; 71045; 80048; 80053; 81003; 81050; 82140; 82565; 82575; 82962; 83735; 83880; 84156; 84484; 84550; 85025; 87081; 90732; 93005; 99291; J8499

== ENCOUNTER 2019-01-11 14:34 | Emergency (ER) | payer BC, MEDICARE ==
[~2019-01-11] VITALS: Ht 175.3 cm; Wt 77.1 kg
[~2019-01-11 14:34] MED LIST: ALLOPURINOL100 M1 ORAL; ASPIR 8181 MG ORAL; CALCITRIOL0.25 MCG PO; DOXAZOSIN MESYLA4 MG ORAL; FUROSEMIDE40 MG ORAL; GLIPIZIDE5 MG ORAL; HYDRALAZINE HC100 MG ORAL; METOPROLOL TART50 M1 ORAL; POTASSIUM CHLO20 ME2 ORAL; VITAMIN D400 INTLU ORAL
[2019-01-11 14:35] VITALS: BP 110/37
[2019-01-11] MEDS ORDERED: NS 250 ML IV ONE (14:37)
--- NOTE | 2019-01-11 14:40 | NUR ---
ED Nurse Note: Patient brought in by RA [address] due to a syncopal episode, patient does not know how long he was out for, no head trauma or tounge trauma noted, at time of arrival patient is alert and oriented x4. patient states that he did go to dialysis today, shunt is located on left arm. patient presents with an 18 gauge IV on left ac however did not use, started IV on patients right 20 gauge. will continue to monitor. blood sugar of 156. Dr. Ayala and notified
--- NOTE | 2019-01-11 14:41 | Emergency Room Report ---
History of Present Illness General Chief Complaint: Syncope Source: Patient Present Illness HPI The patient went underwent dialysis this morning. He was at a store and felt dizzy. He lowered himself to the ground and passed out. Paramedics found him with a blood pressure of 88 standing. They started IV. An EKG was done which showed no injury. The patient denies any pain, fever, chills, nausea, vomiting , diarrhea. He feels hungry at this time. Patient also has a history of diabetes and blood glucose in the field was 159. He denies any calf pain or edema. No sore throat, palpitations, abdominal pain, shortness of breath, joint pain, rashes, depression, anxiety, visual changes, dizziness, headache. The patient was last admitted in September 2017. Discharge diagnoses: 1. Hypertensive urgency/emergency. 2. Toxic metabolic encephalopathy. 3. Acute on chronic renal failure. Allergies: Coded Allergies: No Known Allergies (Verified , 08/30/06) Patient History Past Medical History: see triage record, old chart reviewed Past Surgical History: other - Fistula left arm Social History: Denies: smoking, alcohol use, drug use Social History Narrative From home Reviewed Nursing Documentation: PMH: Agreed; PSxH: Agreed Nursing Documentation-PMH Past Medical History Deferred: Patient Unconscious Hx Hypertension: Yes Hx Diabetes: Yes Hx Cancer: Yes - Colon CA 2006 Hx Dialysis: Yes - T//Sat Review of Systems All Other Systems: negative except mentioned in HPI Physical Exam Vital Signs Date Time Temp Pulse Resp B/P (MAP) Pulse Ox O2 Delivery O2 Flow Rate FiO2 01/11/19 14:26 99.0 76 15 110/37 (61) 96 Room Air Sp02 EP Interpretation: reviewed, normal General Appearance: well appearing, no apparent distress, GCS 15 Head: normocephalic Eyes: bilateral eye normal inspection, bilateral eye PERRL, bilateral eye EOMI ENT: moist mucus membranes Neck: supple Respiratory: lungs clear, normal breath sounds Cardiovascular #1: regular rate, rhythm Cardiovascular #2: 2+ radial (R), 2+ radial (L) - Fistula left antecubital area with thrill Gastrointestinal: normal inspection, normal bowel sounds, non tender, no mass, non-distended Genitourinary: no CVA tenderness Musculoskeletal: back normal, normal range of motion Neurologic: alert, oriented x3, grossly normal Psychiatric: mood/affect normal Skin: no rash, warm/dry Medical Decision Making Diagnostic Impression: Primary Impression: Syncope Qualified Codes: R55 - Syncope and collapse Additional Impressions: Transient hypotension ESRD on dialysis Volume depletion ER Course Patient presents with syncopal episode associated with hypotension after dialysis. Differential includes excessive fluid removal during dialysis, acute myocardial infarction, pulmonary embolus, elect light imbalance and arrhythmia amongst others. Patient will be evaluated with EKG, chest x-ray and labs. The patient will receive a bolus of 250 cc of saline. EKG with LVH and PVCs and possible strain. Chest x-ray unremarkable. Labs with normal white count. High H&H. CMP with elevated creatinine. Patient improved with observation. Blood pressure remained stable. He has occasional PVCs but no other ectopy. Discussed observation versus home observation. The patient feels stable and wants to go home. No identified emergency at this time. Patient stable for outpatient observation and treatment. Laboratory Tests Test 01/11/19 14:50 White Blood Count 8.2 K/UL (4.8-10.8) Red Blood Count 4.31 M/UL (4.70-6.10) L Hemoglobin 14.1 G/DL (14.2-18.0) L Hematocrit 42.5 % (42.0-52.0) Mean Corpuscular Volume 99 FL (80-99) Mean Corpuscular Hemoglobin 32.8 PG (27.0-31.0) H Mean Corpuscular Hemoglobin Concent 33.3 G/DL (32.0-36.0) Red Cell Distribution Width 13.6 % (11.6-14.8) Platelet Count 245 K/UL (150-450) Mean Platelet Volume 6.3 FL (6.5-10.1) L Neutrophils (%) (Auto) 70.0 % (45.0-75.0) Lymphocytes (%) (Auto) 21.8 % (20.0-45.0) Monocytes (%) (Auto) 5.7 % (1.0-10.0) Eosinophils (%) (Auto) 1.7 % (0.0-3.0) Basophils (%) (Auto) 0.8 % (0.0-2.0) Prothrombin Time 9.8 SEC (9.30-11.50) Prothrombin Time INR 0.9 (0.9-1.1) PTT 24 SEC (23-33) Sodium Level 140 MMOL/L (136-145) Potassium Level 4.2 MMOL/L (3.5-5.1) Chloride Level 98 MMOL/L (98-107) Carbon Dioxide Level 29 MMOL/L (21-32) Anion Gap 13 mmol/L (5-15) Blood Urea Nitrogen 16 mg/dL (7-18) Creatinine 5.0 MG/DL (0.55-1.30) H Estimate Glomerular Filtration Rate mL/min (>60) Glucose Level 161 MG/DL (74-106) H Calcium Level 10.0 MG/DL (8.5-10.1) Total Bilirubin 0.5 MG/DL (0.2-1.0) Aspartate Amino Transferase (AST) 14 U/L (15-37) L Alanine Aminotransferase (ALT) 21 U/L (12-78) Alkaline Phosphatase 98 U/L (46-116) Total Creatine Kinase 59 U/L (26-308) Troponin I 0.018 ng/mL (0.000-0.056) Pro-B-Type Natriuretic Peptide 1956 pg/mL (0-125) H Total Protein 8.2 G/DL (6.4-8.2) Albumin 3.5 G/DL (3.4-5.0) Globulin 4.7 g/dL Albumin/Globulin Ratio 0.7 (1.0-2.7) L EKG Diagnostic Results Rate: normal Rhythm: NSR ST Segments: no acute changes - PVCs, LVH and possible strain laterally Rhythm Strip Diag. Results EP Interpretation: yes Rhythm: NSR, other - PVCs rate 96 Chest X-Ray Diagnostic Results Chest X-Ray Diagnostic Results : Chest X-Ray Ordered: Yes # of Views/Limited/Complete: 1 View Indication: Other EP Interpretation: Yes Interpretation: no consolidation, no effusion, no pneumothorax Impression: No acute disease Electronically Signed by: Electronically signed by Wilman Ayala MD Last Vital Signs Date Time Temp Pulse Resp B/P (MAP) Pulse Ox O2 Delivery O2 Flow Rate FiO2 01/11/19 18:30 99.0 70 15 125/83 96 Room Air Status: improved Disposition: HOME, SELF-CARE Condition: Improved Wilman Ayala MD Jan 11, 2019 14:41
[2019-01-11 15:02] LABS: BASOPHILS % (AUTO) 0.8 % (0.0-2.0); EOSINOPHILS % (AUTO) 1.7 % (0.0-3.0); HEMATOCRIT 42.5 % (42.0-52.0); HEMOGLOBIN 14.1 G/DL (14.2-18.0); LYMPHOCYTES % (AUTO) 21.8 % (20.0-45.0); MEAN CORPUSCULAR VOLUME 99 FL (80-99); MONOCYTES % (AUTO) 5.7 % (1.0-10.0); PLATELET COUNT 245 K/UL (150-450); RED BLOOD COUNT 4.31 M/UL (4.70-6.10); RED CELL DISTRIBUTION WIDTH 13.6 % (11.6-14.8); WHITE BLOOD COUNT 8.2 K/UL (4.8-10.8)
[2019-01-11 15:15] LABS: INR 0.9 (0.9-1.1)
[2019-01-11 15:27] LABS: ALANINE AMINOTRANSFERASE 21 U/L (12-78); ALBUMIN 3.5 G/DL (3.4-5.0); ALBUMIN/GLOBULIN RATIO 0.7 (1.0-2.7); ALKALINE PHOSPHATASE 98 U/L (46-116); ANION GAP 13 mmol/L (5-15); ASPARTATE AMINO TRANSFERASE 14 U/L (15-37); BILIRUBIN,TOTAL 0.5 MG/DL (0.2-1.0); BLOOD UREA NITROGEN 16 mg/dL (7-18); CARBON DIOXIDE 29 MMOL/L (21-32); CHLORIDE 98 MMOL/L (98-107); CREATINE KINASE 59 U/L (26-308); POTASSIUM 4.2 MMOL/L (3.5-5.1); SODIUM 140 MMOL/L (136-145)
--- NOTE | 2019-01-11 15:42 | Diagnostic Imaging Report ---
Indication: Reason For Exam: SYNCOPE Technique: Single AP view of the chest. Comparison: Chest radiograph Dated 09/10/2017 Findings: The cardiomediastinal silhouette is unchanged. No new airspace consolidation. No pneumothorax. No pleural effusion. No acute osseous abnormality. IMPRESSION: No radiographic evidence of acute cardiopulmonary process.
--- NOTE | 2019-01-11 16:30 | NUR ---
ED Nurse Note: Patient in bed at no distress at this time, will continue to monitor
--- NOTE | 2019-01-11 18:25 | NUR ---
Note gamaliel in EDM - 01/11/19 at 1955 by JAZZMINE ER DISCHARGE NOTE: Patient is cleared to be discharged per ERMD, pt is aox4, on room air, with stable vital signs. pt was given dc and prescription instructions, pt was able to verbalize understanding, pt id band and iv site removed without complications. pt is able to ambulate with steady gait. pt took all belongings.
--- NOTE | 2019-01-11 18:25 | NUR ---
ER DISCHARGE NOTE: Patient is cleared to be discharged per ERMD, pt is aox4, on room air, with stable vital signs. pt was given dc instructions, pt was able to verbalize understanding, pt id band and iv site removed without complications. pt is able to ambulate with steady gait. pt took all belongings.
[2019-01-11 18:30] VITALS: BP 125/83
== END 2019-01-11 18:25 | disposition home or self-care (01) ==
LOC: EDBD 14:34 → EMR 14:41
DX: R55 Syncope and collapse (principal); I95.9 Hypotension, unspecified; E11.22 Type 2 diabetes mellitus with diabetic chronic kidney disease; I12.0 Hypertensive chronic kidney disease with stage 5 chronic kidney disease or end stage renal disease; N18.6 End stage renal disease; E86.9 Volume depletion, unspecified; Z99.2 Dependence on renal dialysis; Z85.038 Personal history of other malignant neoplasm of large intestine
CPT/HCPCS: 36415; 71045; 80053; 82550; 83880; 84484; 85025; 85610; 85730; 99285